=== PATIENT | male | born 1950 | race American Indian/Alaskan Native ===

== ENCOUNTER 2018-10-18 10:43 | Day surgery (SDC) | payer OTHER ==
--- NOTE | 2018-10-18 11:23 | Anesthesia Day of Surgery ---
Anesthesia Day of Surgery - Day of Surgery Patient Examined: Yes Patient H&P Reviewed: Yes Patient is NPO: Yes Beta Blockers: No
--- NOTE | 2018-10-18 11:24 | Anesthesia Consultation ---
Anesthesia Consult and Med Hx Date of service: 10/18/18 - Airway Anesthetic Teeth Evaluation: Good ROM Head & Neck: Adequate Mental/Hyoid Distance: Adequate Mallampati Class: Class III Intubation Access Assessment: Good - Pulmonary Exam CTA: Yes - Cardiac Exam Cardiac Exam: No Murmur - Pre-Operative Health Status ASA Pre-Surgery Classification: ASA3 Proposed Anesthetic Plan: MAC - Pulmonary Hx Smoking: No Hx Asthma: No Hx Respiratory Symptoms: No SOB: No COPD: No Home Oxygen Therapy: No Hx Pneumonia: No Hx Sleep Apnea: No - Cardiovascular System Hx Hypertension: Yes Hx Coronary Artery Disease: No Hx Heart Attack/AMI: No Hx Angina: No Hx Percutaneous Transluminal Coronary Angioplasty (PTCA): No Hx Cardia Arrhythmia: No Hx Pacemaker: No Hx Internal Defibrillator: No Hx Valvular Heart Disease: No Hx Heart Murmur: No Hx Peripheral Vascular Disease: No - Central Nervous System Hx Neuromuscular Disorder: No Hx Seizures: No CVA: No Hx Back Pain: No Hx Psychiatric Problems: No - Gastrointestinal Hx Ulcer: No Hx Gastroesophageal Reflux Disease: No - Endocrine Hx Renal Disease: No Hx End Stage Renal Disease: No Hx Cirrhosis: No Hx Liver Disease: No Hx Insulin Dependent Diabetes: No Hx Non-Insulin Dependent Diabetes: No Hx Thyroid Disease: No Hx Hypothyroidism: No Hx Hyperthyroidism: No - Hematic Hx Anemia: No Hx Sickle Cell Disease: No - Other Systems Hx Alcohol Use: No Hx Substance Use: No Hx Cancer: No Hx Obesity: No
[2018-10-18] MEDS ORDERED: DIPRIVAN 10 MG/ML IV ONE ×4 (11:28→13:05)
[2018-10-18] MEDS ORDERED: NACL 0.9% 1000 ML 1,000 ML IV SCH (12:00)
--- NOTE | 2018-10-18 13:40 | Operative Report ---
Operative Report Operative Report: Procedure: Colonoscopy with Multiple Snare polypectomies and submucosal injection Multiple Hot biopsy Polypectomy and Polyp ablation. Tattoo of colon. Attending physician: Moshe Luke MD Calender Roll Operator: Moshe Luke MD Indication: Patient is a 68-year-old male who presents for colonoscopy. Patient has a history of colon polyp/mass noted on colonoscopy in 2018. 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 In the interval, patient has not had any colonoscopy to remove the colon polyp or mass. This colonoscopy serves to evaluate patient so that treatment may be directed based on the findings. Consent: Informed consent was obtained after advising the patient and family regarding nature of this procedure, its indications, potential benefits as well as possible complications including but not limited to bleeding perforation and adverse reaction to medication, infection as well as other cardiopulmonary complications. An informed written and verbal consent was then obtained after due opportunity was provided for questions and answers. Monitoring: Patient was monitored continuously with pulse oximetry and electrocardiographic recordings as well as blood pressure recordings. Vital signs remained stable throughout this procedure with no untoward events. Preoperative assessment: Patient was assessed immediately prior to this procedure for capacity to tolerate monitored anesthesia care and moderate sedation as well as general anesthesia. Patient's ASA classification is 2, Mallampati class is 2, Hyomental distance is 3. Instrument: [employer] video colonoscope Medications: Propofol given intravenously in divided doses. For details please refer to anesthesia records. Description of procedure: Patient was placed in the left lateral decubitus position after achieving sedation, a digital rectal examination was performed following which the colonoscope was introduced into the anal verge and advanced to the cecum which was identified by the cecal valve, the appendiceal orifice, as well as by the cecal strap and direct transillumination. The colonoscope was subsequently withdrawn with careful inspection of all mucosal surfaces. Patient tolerated this procedure well and was subsequently taken to the recovery room. The following findings were noted. Findings: Patient had 2 7-8 mm sessile polyps seen in the descending colon which were elevated with submucosal injection of saline and removed by snare electrocautery. In the transverse colon, patient had a broad-based 3.5-4.5 cm sessile semicircumferential polyp. It was elevated with submucosal injection of saline and removed completely by snare electrocautery. The edges were ablated. Avulsion was used to remove any residual polyp tissue. Multiple hemoclips were used to close the defect was created by the removal. 3 hemoclips were used. There were scattered diverticula seen in the sigmoid colon and descending colon. The rest of the examination to the cecum was normal except for substantial retained stool in the cecum. It was irrigated as much as possible. Patient was noted to have prominent large internal hemorrhoids seen on the retroflexed view at the anal verge. Impression: Large transverse colon sessile polyp status post snare polypectomy and submucosal injection and clip application with ablation of polyp edge. Also the proximal and distal margins of the polyp were tattooed. Descending colon polyps status post submucosal injection and snare polypectomy Retained stool in the cecum Diverticular disease of the colon Internal hemorrhoids. Plan: Follow pathology report. High-fiber diet. Repeat colonoscopy in 6 months. Patient however will need a resection if the polyp in the transverse colon is found to be invasive cancer
[2018-10-18 13:46] VITALS: BP 123/76
--- NOTE | 2018-10-18 14:59 | Discharge Summary ---
Short Stay Discharge Plan Activity: advance as tolerated Weight Bearing Status: Weight Bear as Tolerated Diet: regular Additional Instructions: Avoid Aspirin NSAIDS D/C Instructions Avoid the following for the time period specified by your physician: -Asprin([place], Bufferin, Excedrin, Goody's or BC Powders) -Ibuprofen (Advil or Motrin) -Naproxen (Aleve or Naprosyn) -Indomethacin, Sulindac, Etodolac, Diclofenac -Meloxicam, Piroxicam, Tenoxicam, Droxicam, Lornoxicam, Isoxicam - Mefenamic acid, Meclofenamic acid, Flufenamic acid, Tolfenamic acid -Celecoxib (Celebrex) Post Sedation D/C Instructions When you return home you may resume your regular diet unless otherwise directed. -Go directly home from the hospital and rest quietly. You may resume normal activities tomorrow. -Do NOT drive, return to work, operate any machinery or make any important personal or business decisions today. -Do NOT drink any alcohol or take nerve or sleeping drugs. They add to the effects of the medicine still present in your body. Follow up with: DWAYNE CASILLAS MD [Staff Physician] - 7 Days [facility], [Primary Care Provider] - 7 Days Forms: Discharge Signature Page
== END 2018-10-18 14:15 | disposition home or self-care (01) ==
LOC: GIO 10:43
PROVIDERS: ATTEND Internal Medicine Gastroenterology
DX: Z12.11 Encounter for screening for malignant neoplasm of colon (principal); D12.4 Benign neoplasm of descending colon; D12.3 Benign neoplasm of transverse colon; E78.00 Pure hypercholesterolemia, unspecified; I10 Essential (primary) hypertension; F41.9 Anxiety disorder, unspecified; F32.9 Major depressive disorder, single episode, unspecified; Z98.890 Other specified postprocedural states; Z79.899 Other long term (current) drug therapy; Z79.01 Long term (current) use of anticoagulants
CPT/HCPCS: 45381; 45385; 88305; J2704; J7030

== ENCOUNTER 2019-05-05 09:20 | Day surgery (SDC) | payer OTHER ==
[2019-05-05] MEDS ORDERED: NACL 0.9% 1000 ML 1,000 ML IV SCH (10:29)
--- NOTE | 2019-05-05 10:43 | Anesthesia Consultation ---
Anesthesia Consult and Med Hx Date of service: 05/05/19 - Airway Anesthetic Teeth Evaluation: Good ROM Head & Neck: Adequate Mental/Hyoid Distance: Adequate Mallampati Class: Class III Intubation Access Assessment: Possibly Difficult - Pulmonary Exam CTA: Yes - Cardiac Exam Cardiac Exam: RRR - Pre-Operative Health Status ASA Pre-Surgery Classification: ASA2 Proposed Anesthetic Plan: MAC - Pulmonary Hx Respiratory Symptoms: No - Cardiovascular System Hx Hypertension: Yes Hx Heart Attack/AMI: No - Central Nervous System Hx Psychiatric Problems: Yes (depression) - Endocrine Hx Renal Disease: No Hx Liver Disease: No Hx Insulin Dependent Diabetes: No Hx Non-Insulin Dependent Diabetes: No Hx Thyroid Disease: No
--- NOTE | 2019-05-05 10:44 | Anesthesia Day of Surgery ---
Anesthesia Day of Surgery - Day of Surgery Patient Examined: Yes Patient H&P Reviewed: Yes Patient is NPO: Yes
[2019-05-05] MEDS ORDERED: XYLOCAINE MPF 2% ONE (11:30)
[2019-05-05] MEDS ORDERED: DIPRIVAN 10 MG/ML IV ONE ×2 (11:34)
--- NOTE | 2019-05-05 12:29 | Discharge Summary ---
Short Stay Discharge Plan Activity: advance as tolerated Weight Bearing Status: Weight Bear as Tolerated Diet: regular Follow up with: PRIMARY CARE, [Primary Care Provider] - 7 Days
--- NOTE | 2019-05-05 12:29 | Operative Report ---
Operative Report Operative Report: Date of procedure: 05/05/2019 Procedure: Colonoscopy with Multiple Snare polypectomies, Multiple Hot Biopsy Polypectomies, / Polyp Avulsion, Ablation of multiple colon polyps and Multiple submucosal injections. Multiple hemoclip applications. Attending physician: Moshe Luke M.D. Roller Leveler Operator: Moshe Luke M.D. Indication: Patient is a 69-year-old male who presents for surveillance colonoscopy. He has a past history of colon polyps and pathology suggestive multiple tubular adenomas with high-grade dysplasia but with negative margins for any high-grade dysplasia.. This colonoscopy serves to evaluate patient so that treatment may be directed based on the findings. Consent: Informed consent was obtained after advising the patient and family regarding nature of this procedure, its indications, potential benefits as well as possible complications including but not limited to bleeding perforation and adverse reaction to medication, infection as well as other cardiopulmonary complications. An informed written and verbal consent was then obtained after due opportunity was provided for questions and answers. Monitoring: Patient was monitored continuously with pulse oximetry and electrocardiographic recordings as well as blood pressure recordings. Vital signs remained stable throughout this procedure with no untoward events. Preoperative assessment: Patient was assessed immediately prior to this procedure for capacity to tolerate monitored anesthesia care and moderate sedation as well as general anesthesia. Patient's ASA classification is 2, Mallampati class is 2, Hyomental distance is 3. Instrument: [employer] video colonoscope. Medications: Propofol given intravenously in divided doses. For details please refer to anesthesia records. Description of procedure: Patient was placed in the left lateral decubitus position after achieving sedation, a digital rectal examination was performed following which the colonoscope was introduced into the anal verge and advanced to the cecum which was identified by the cecal valve, the appendiceal orifice, as well as by the cecal strap and direct transillumination. The colonoscope was subsequently withdrawn with careful inspection of all mucosal surfaces. Patient tolerated this procedure well and was subsequently taken to the recovery room. The following findings were noted. Findings: The preparation was fair. The patient had some retained stool in sections of the colon. The colon however was moderately tortuous. The cecum was normal. Ascending colon was normal. At the proximal transverse colon/hepatic flexure, patient had a noted Hemoclip. Around the Hemoclip there was some small fragments of polyp tissue. A submucosal injection injection with saline was done and the polyp fragments were removed completely. An adjacent polyp in this section was also elevated with submucosal injection and removed by snare polypectomy. Multiple hemoclips were applied in this area. Avulsion was used to remove residual polyp. Ablation was done in this area as well. There was scattered retained stool in sections of the colon particularly in the descending colon and sigmoid colon. Patient had diverticula involving the sigmoid colon and the descending colon. On retroflex view at the anal verge, patient had internal hemorrhoids. Impression: Small transverse colon/hepatic flexure polyps status post submucosal injection, snare polypectomy, multiple Hemoclip applications, ablation of polyp site with avulsion and hot biopsy removal of any residual polyp. Diverticulosis Retained stool Internal hemorrhoids Plan: Follow pathology report. High-fiber diet. Consider repeat colonoscopy in one to 2 years.
[2019-05-05 12:59] VITALS: BP 123/80
--- NOTE | 2019-05-05 15:14 | Post Anesthesia Evaluation ---
- Post Anesthesia Evaluation Patient Participated: Yes Airway Patent: Yes Stable Respiratory Function: Yes Nausea/Vomiting: No Temp > 96.8F: Yes Pain Manageable: Yes Adequeate Hydration: Yes Anesthesia Complications: No Block Receding Appropriately: Not Applicable Patient on Ventilator: No
== END 2019-05-05 13:09 | disposition home or self-care (01) ==
LOC: GIO 09:20
PROVIDERS: ATTEND Internal Medicine Gastroenterology
DX: Z09 Encounter for follow-up examination after completed treatment for conditions other than malignant neoplasm (principal); K63.5 Polyp of colon; K57.30 Diverticulosis of large intestine without perforation or abscess without bleeding; K64.8 Other hemorrhoids; E78.00 Pure hypercholesterolemia, unspecified; F41.9 Anxiety disorder, unspecified; I10 Essential (primary) hypertension; M19.90 Unspecified osteoarthritis, unspecified site; F32.9 Major depressive disorder, single episode, unspecified; Z79.899 Other long term (current) drug therapy; Z98.890 Other specified postprocedural states
CPT/HCPCS: 45381; 45385; 88305; J2704; J7030